=== PATIENT | male | born 1990 | race Caucasian/White ===

== ENCOUNTER 2024-01-18 09:50 | Emergency (ER) | payer BC ==
[~2024-01-18] VITALS: Ht 182.9 cm; Wt 123.6 kg
[2024-01-18 09:53] VITALS: TEMP 98.4
[2024-01-18] MEDS: FAMOTIDINE 20 MG/2 ML VIAL IV STA (10:57)
[2024-01-18] MEDS: ASPIRIN 325 MG TAB PO ONE (10:57)
[2024-01-18] MEDS ORDERED: PEPCID20 MG PO (12:58)
[2024-01-18] MEDS ORDERED: CYCLOBENZAPRINE5 MG PO (14:33)
[2024-01-18 14:56] VITALS: PULSE 84; RESP 18; O2SAT 95
== END 2024-01-18 15:03 | disposition home or self-care (01) ==
LOC: FSED 09:55
DX: R07.89 Other chest pain (principal); R10.13 Epigastric pain; H81.02 Meniere's disease, left ear; H91.92 Unspecified hearing loss, left ear; F41.9 Anxiety disorder, unspecified
CPT/HCPCS: 71046; 80053; 80307; 81003; 82553; 84484; 85025; 85379; 93005; 96374; 99284